=== PATIENT | male | born 1985 | race Caucasian/White ===

== ENCOUNTER 2016-09-07 18:12 | Inpatient (IN) | payer OTHER ==
[~2016-09-07] VITALS: Ht 180.3 cm; Wt 100.0 kg
[2016-09-07] MEDS ORDERED: 0.9% Sodium Chloride 1,000 ML IV ONE (18:20)
[2016-09-07] MEDS ORDERED: TdaP Vaccine 0.5 mL Inj IM ONE (18:20)
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
[2016-09-07 18:29] LABS: BASOPHILS % (AUTO) 0.4 % (0-3); EOSINOPHILS % (AUTO) 2.3 % (0-5); MONOCYTES % (AUTO) 6.4 % (4-12); Mean Corpuscular Hemoglobin 30.4 pg (27.0-35.0); Mean Corpuscular Volume 88.3 fL (81-100); NEUTROPHILS % (AUTO) 45.8 % (40-74); Platelet Count 316 bil/L (150-400)
[2016-09-07] MEDS: fentaNYL-PF 50 mCg/mL 2 mL Inj IVPUSH PRN ×3 (18:30→19:50)
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
--- NOTE | 2016-09-07 19:15 | DRSVH ---
PROCEDURE: X-RAY PELVIS, ONE OR TWO VIEWS ([id number]) INDICATIONS: trauma, PELVIS TECHNIQUE: 1 view(s) of the pelvis acquired. COMPARISON: None. FINDINGS: Bones: No fractures or dislocations. No suspicious bony lesions. Soft tissues: Visualized bowel gas pattern is normal. No suspicious soft tissue calcifications. IMPRESSION: No fracture. No osseous lesion. If there are persistent symptoms or clinical suspicion f or pathology, then repeat radiographs or advanced imaging (CT, MRI or bone scan) should be considered for further evaluation. Dictated by: Sury Muniz MD, PhD on 09/07/2016 at 19:13 Approved by: Sury Muniz MD, PhD on 09/07/2016 at 19:14
--- NOTE | 2016-09-07 19:17 | DRSVH ---
PROCEDURE: X-RAY LEFT TIBIA/FIBULA, TWO VIEWS ([id number]) INDICATIONS: trauma, LOWER LEG TECHNIQUE: 2 views of the tibia and fibula were acquired. COMPARISON: None. FINDINGS: Bones: Displaced fracture of the proximal fibula is noted. Soft tissue gas is noted suspicious for open fracture. Soft tissues: Small linear calcification noted in the expected lateral margin of the lateral meniscu s which could represent a small avulsion fracture versus foreign body. IMPRESSION: Displaced proximal fibular fracture. Dictated by: Sury Muniz MD, PhD on 09/07/2016 at 19:14 Approved by: Sury Muniz MD, PhD on 09/07/2016 at 19:16
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
[2016-09-07] MEDS ORDERED: DEXTROSE 5% IV ONE (19:55)
[2016-09-07] MEDS ORDERED: CEFAZOLIN IV ONE (19:55)
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
[2016-09-07] MEDS ORDERED: CeFAZolin Inj 2 GM in IV Premix 1 EACH IV ONE (19:58)
[2016-09-07] MEDS ORDERED: Lidocaine 1%-Epi 1:100,000 50 mL Inj NERVEBLOCK ONE (20:15)
[2016-09-07] MEDS: HYDROmorphone 0.5 mg/0.5 mL iSecure Syringe IVPUSH PRN ×4 (20:15→22:23)
[2016-09-07] MEDS ORDERED: Lidocaine 1%/Epi 1:100,000 30 mL MDV ONE (20:19)
--- NOTE | 2016-09-07 20:30 | DRSVH ---
PROCEDURE: X-RAY LEFT ANKLE, MINIMUM THREE VIEWS ([id number]) INDICATIONS: trauma TECHNIQUE: 3 views of the ankle were acquired. COMPARISON: None. FINDINGS: Bones: No fractures or dislocations. Ankle mortise is normally aligned. No suspicious bony lesions . Soft tissues: No tibiotalar joint effusion. Achilles tendon appears normal. Lateral soft tissue swe lling is noted and ligamentous injury cannot be excluded. IMPRESSION: No fracture. No osseous lesion. If there are persistent symptoms or clinical suspicion f or pathology, then repeat radiographs or advanced imaging (CT, MRI or bone scan) should be considered for further evaluation. Dictated by: Sury Muniz MD, PhD on 09/07/2016 at 20:27 Approved by: Sury Muniz MD, PhD on 09/07/2016 at 20:28
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
[2016-09-07] MEDS ORDERED: MetoCLOpramide 5 mg/mL 2 mL Inj IVPUSH PRN (21:10)
[2016-09-07] MEDS ORDERED: Ondansetron 2 mg/mL 2 mL Inj IVPUSH PRN (21:10)
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
[2016-09-07] MEDS: HYDROmorphone 1 mg/mL Inj IVPUSH PRN (23:58)
[2016-09-08] VITALS (9 sets, daily range): BP systolic 134–151; BP diastolic 84–96; PULSE 121–154; RESP 14–18; O2SAT 95–98
[2016-09-08] MEDS: D5 0.45% NaCl + KCl 20 mEq/L 1,000 ML IV SCH ×3 (00:09→17:24)
[2016-09-08] MEDS: Sodium Chloride LOK Flush 10 mL Syringe IVFLUSH SCH ×3 (00:30→16:14)
--- NOTE | 2016-09-08 02:40 | NUR ---
Admission Pt arrived to [facility] alert and oriented x 4 via gurney at 2320. Pt attempted to stand with 2P assist;however he c/o lightheadedness and was placed onto the bed with his head down. Pt states position was helpful. Pt oriented to room, call light, television, bathroom, and bed controls. Pt c/o lt calf pain and was given Dilaudid 0.5mg IVP x2, which was an improvement states pt. Pt denies chest pain/pressure and shortness of breath. Pt continues to have HR in the 140s-asymptomatic. Continuous pulse ox and telemetry in place. Call light within reach. Care ongoing.
[2016-09-08] MEDS: HYDROmorphone 1 mg/mL Inj IVPUSH PRN ×6 (04:26→22:19)
[2016-09-08 05:39] LABS: BASOPHILS % (AUTO) 0.1 % (0-3); EOSINOPHILS % (AUTO) 0 % (0-5); MONOCYTES % (AUTO) 15.5 % (4-12); Mean Corpuscular Volume 90.2 fL (81-100); NEUTROPHILS % (AUTO) 71.1 % (40-74); Platelet Count 251 bil/L (150-400)
[2016-09-08] MEDS: Polyethylene Glycol (PEG) 17 Gm Powder PO SCH (08:41)
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
--- NOTE | 2016-09-08 11:26 | PCM.PNORTH ---
Subjective Date of Service: Sep 08, 2016 Visit Information: Reason for Visit Trauma Complex Leg Lac L Knee Injury Surgery/Surgery Date Post-Op Day # Date of Admission: Sep 07, 2016 at 22:09 Hospital Day # Subjective Patient is doing #1 from the left fibular shaft fracture, left tibial plateau small avulsion fracture anteriorly, patellar fracture of the left knee. Patient is lying down in bed and states that he has a little bit of pain which is slowly getting worse but has been doing okay through the night. He understands that he will be able to be weightbearing and will need to be immobilized for a few weeks. 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 He is ready to work with physical therapy and see how he performs and understands that he will need to eat, use the restroom, have pain well controlled, and be able to ambulate well before discharge. Postop General: No Shortness of Breath, No Chest Pain Objective Exam Objective Patient is alert and oriented 3. Answering questions appropriately. Patient is sitting up in the bed and appears comfortable today. Dressing is clean dry and intact. Calf is soft and nontender as far as I am able to test through the immobilizer.. Sensation and pulses intact, patient able to wiggle toes. Blood pressure aditya to approximately 180 systolic during physical therapy, possible pain control issue. Vital Signs and I/O Vital Sign - Last Date Time Temp Pulse Resp B/P Pulse Ox O2 Delivery O2 Flow Rate FiO2 09/08/16 08:59 36.7 139 18 134/92 96 Room Air Intake and Output 09/07/16 09/07/16 09/08/16 Cumulative From/Thru 15:00 23:00 07:00 09/07/16 19:54 - 09/08/16 06:44 Intake Total 1445 ml 1445 ml Output Total 620 ml 620 ml Balance 825 ml 825 ml Intake Oral 800 ml 800 ml IV Total 645 ml 645 ml Output Urine Total 620 ml 620 ml # Bowel Movements 0 0 Lab & Micro Results Laboratory Tests Test 09/07/16 18:22 09/07/16 21:23 09/08/16 05:10 White Blood Count 9.4th/mm3 (3.8-10.1) 9.1th/mm3 (3.8-10.1) Red Blood Count 5.40mil/mm3 (4.40-5.80) 4.50mil/mm3 (4.40-5.80) Hemoglobin 16.4g/dL (13.8-17.2) 14.6g/dL (13.8-17.2) 13.5g/dL (13.8-17.2) Hematocrit 47.7% (41.0-50.0) 42.8% (41.0-50.0) 40.6% (41.0-50.0) Mean Corpuscular Volume 88.3fL (81-100) 90.2fL (81-100) Mean Corpuscular Hemoglobin 30.4pg (27.0-35.0) 30.0pg (27.0-35.0) Mean Corpuscular Hemoglobin Concent 34.4% (32.0-37.0) 33.3% (32.0-37.0) Red Cell Distribution Width 11.9% (12.3-15.4) 12.0% (12.3-15.4) Platelet Count 316bil/L (150-400) 251bil/L (150-400) Neutrophils (%) (Auto) 45.8% (40-74) 71.1% (40-74) Lymphocytes (%) (Auto) 44.9% (14-46) 13.1% (14-46) Monocytes (%) (Auto) 6.4% (4-12) 15.5% (4-12) Eosinophils (%) (Auto) 2.3% (0-5) 0% (0-5) Basophils (%) (Auto) 0.4% (0-3) 0.1% (0-3) Sodium Level 136mEq/L (134-144) 136mEq/L (134-144) Potassium Level 3.2mEq/L (3.5-5.2) 4.2mEq/L (3.5-5.2) Chloride Level 95mEq/L (97-108) 100mEq/L (97-108) Carbon Dioxide Level 20mmol/L (18-29) 19mmol/L (18-29) Blood Urea Nitrogen 19mg/dL (6-20) 19mg/dL (6-20) Creatinine 1.20mg/dL (0.76-1.27) 0.98mg/dL (0.76-1.27) Estimat Glomerular Filtration Rate 76mL/min (>59) 96mL/min (>59) Glucose Level 146mg/dL (60-99) 174mg/dL (60-99) Calcium Level 9.3mg/dL (8.5-10.1) 8.7mg/dL (8.5-10.1) Total Bilirubin 0.4mg/dL (0.0-1.2) 0.5mg/dL (0.0-1.2) Aspartate Amino Transf (AST/SGOT) 20U/L (0-50) 54U/L (0-50) Alanine Aminotransferase (ALT/SGPT) 31U/L (0-44) 28U/L (0-44) Alkaline Phosphatase 71U/L (25-150) 56U/L (25-150) Troponin T < 0.010ug/L (0.0-0.011) Total Protein 7.5g/dL (6.4-8.4) 5.9g/dL (6.4-8.4) Albumin 4.6g/dL (3.4-5.0) 3.9g/dL (3.4-5.0) Alcohols < 10mg/dL (0-10) Result Diagram: 09/08/1610 09/08/16509 Assessment & Plan Impression Patient is day 1 from left patellar fracture, midshaft proximal third fibular fracture, small tibial plateau fracture. Patient doing well as far as compliance and immobilization and willingness to work with physical therapy. Pain control may be a concern today and as patient worked with physical therapy his blood pressure aditya significantly. Problems: Plan Patient will continue to work with physical therapy most likely with crutches for gait training. WBAT with knee immobilizer and walking boot. Wound care consultation was placed yesterday to evaluate the left elbow and road rash abrasions to care and do daily dressing changes as needed or recommended. Order per Dr. Dominguez: recommend loose primary closure versus wound consult/plastics for wound care/flap evaluation Recommended confirm that tetanus shot is up-to-date, antibiotics as indicated by hospitalist for Dr. Monsalve as appropriate. Thank you to hospitalist for managing patient's other medical concerns. We will continue to follow while in hospital. Once pain is able to be controlled and patient able to ambulate safely and cleared by physical therapy with crutches, maybe discharge from an orthopedic perspective. pt can f/u as outpatient in clinic with 2 view knee and tib/fib xrays in 2 weeks Will Richardson PA-C Sep 08, 2016 11:26 Will Richardson PA-C Sep 08, 2016 11:26
[2016-09-08 13:28] LABS: BASOPHILS % (AUTO) 0.1 % (0-3); EOSINOPHILS % (AUTO) 0 % (0-5); MONOCYTES % (AUTO) 15.4 % (4-12); Mean Corpuscular Volume 89.8 fL (81-100); NEUTROPHILS % (AUTO) 61.3 % (40-74); Platelet Count 199 bil/L (150-400)
--- NOTE | 2016-09-08 13:30 | NUR ---
Evaluation completed. Please go to "Notes" then click on "Assessments and Notes" (bottom left corner of screen). Then select appropriate discipline tab on top of screen.
--- NOTE | 2016-09-08 14:22 | PROG NOTE ---
[address] [address] PROGRESS NOTE PATIENT: MARGO CHAUDHARI : 1985 MR#: [id number] ADMIT: 09/07/2016 JOB ID: [id number] DATE: 09/08/2016 SUBJECTIVE: The patient is seen in followup in the afternoon. Overall he is doing well. However, he remains persistently tachycardic with his heart rate going up as high as 154 later this morning. He tells me his pain is well controlled. I rechecked hematocrit which looks relatively stable. It went from 40.6 to 37.7. His belly is benign. I am going to get a CT of the chest just to make sure that there is no blunt thoracic aortic artery injury or some other significant etiology of his tachycardia.
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
--- NOTE | 2016-09-08 18:43 | NUR ---
pain management/tachycardia patient's pain has been relatively well controlled today. tolerating 10mg oxycodone approx every 4 hours. patient has needed 1 mg IV dilaudid in between PO pain meds after dressing changes and MD evaluations of left davies wound. patient remains tachycardic, ranging 120-130's ST at rest. patient was up with PT and noted an increased in HR to 180's becoming symptomatic--became pale and clammy. Dr Monsalve notified of increased rate, CTa ordered. Dr Monsalve aware of results, noting found to explain increased HR. continue to monitor.
[2016-09-09] VITALS (8 sets, daily range): BP systolic 129–146; BP diastolic 79–94; PULSE 128–139; RESP 16–18; O2SAT 95–98
[2016-09-09] MEDS: Sodium Chloride LOK Flush 10 mL Syringe IVFLUSH SCH ×3 (00:30→16:30)
[2016-09-09] MEDS: D5 0.45% NaCl + KCl 20 mEq/L 1,000 ML IV SCH ×3 (04:18→23:44)
--- NOTE | 2016-09-09 04:50 | NUR ---
DRESSING/PAIN/PULSE: Dressing was changed at about 0045, dressing was saturated with S/S drainage. Pulses are present on L.E. able to check pulses with Doppler. Medicated with Roxicodone and Dilaudid for pain, effective. Voiding per urinal independently. Heart rate is still elevated from teens to 140s at rest. Pulse elevated with activity goes into the 150s-170s for a few seconds. Will cont. to monitor.
[2016-09-09 08:09] LABS: Mean Corpuscular Hemoglobin 30.2 pg (27.0-35.0)
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
[2016-09-09] MEDS: Polyethylene Glycol (PEG) 17 Gm Powder PO SCH (08:24)
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
[2016-09-09] MEDS: HYDROmorphone 1 mg/mL Inj IVPUSH PRN (16:13)
--- NOTE | 2016-09-09 18:15 | NUR ---
Pain, Tachycardia Patient continues to have pain to the lower left leg this shift, states that it is well controlled with ordered pain medications. Patient alert and oriented. Patient continues to be tachycardic, MD aware. Care is ongoing.
--- NOTE | 2016-09-09 19:05 | NUR ---
Wound Note Patient seen at bedside for wound care and dressing change instructions. Left pretibial wound cleaned with saline moist gauze and redressed with 4x4 gauze, abd pads, kerlix wrap and leo wrap. Patient instructed to change this dressing daily on discharge. Left elbow wound cleaned with saline moist gauze and redressed a foam mepilex dressing, pt instructed to change this q 48 hours. Right medial lower leg wound, dressed with mepilex dressing and to change q 48 hours. Patient has follow up appointment at wound center with Dr Bello Vasques 09/13.
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
[2016-09-10] VITALS (8 sets, daily range): BP systolic 127–156; BP diastolic 76–88; PULSE 114–163; RESP 18; O2SAT 95–99
[2016-09-10] MEDS: Sodium Chloride LOK Flush 10 mL Syringe IVFLUSH SCH ×3 (00:30→16:19)
--- NOTE | 2016-09-10 04:36 | NUR ---
Pain Patient's states his pain has been managed well with Roxycodone 15 mg q4 hours. Patient A&OX3. Good sensation in extremities. Patient has not been up OOB this shift. Tele sinus Tachy 135. Dressing clean dry and intact. no sign of dressing becoming saturated. Patient resting quietly in bed most of shift.
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
[2016-09-10 08:48] LABS: BASOPHILS % (AUTO) 0.1 % (0-3); EOSINOPHILS % (AUTO) 0.8 % (0-5); MONOCYTES % (AUTO) 11.1 % (4-12); Mean Corpuscular Hemoglobin 30.1 pg (27.0-35.0); Mean Corpuscular Volume 92.5 fL (81-100); NEUTROPHILS % (AUTO) 66.3 % (40-74); Platelet Count 170 bil/L (150-400)
[2016-09-10] MEDS: D5 0.45% NaCl + KCl 20 mEq/L 1,000 ML IV SCH ×2 (08:53→18:20)
[2016-09-10] MEDS: Polyethylene Glycol (PEG) 17 Gm Powder PO SCH (08:53)
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
--- NOTE | 2016-09-10 13:32 | PROG NOTE ---
[address] [address] PROGRESS NOTE PATIENT: MARGO CHAUDHARI : 1985 MR#: [id number] ADMIT: 09/07/2016 JOB ID: [id number] DATE: 09/10/2016 SUBJECTIVE: The patient remains afebrile, still tachycardic. He is awaiting further evaluation/instructions with physical therapy prior to being ready for discharge. Examination is otherwise unremarkable. White count remains normal at 7.3, but his hematocrit continues to trend down from an initial hematocrit of 42 to 40 to 38 to 35 and now to 29.8 this morning. DATE: IMPRESSION AND PLAN: Unexplained tachycardia, continued drop in his hematocrit that seems excessive for his orthopedic injuries. Given the continued tachycardia and the dropping hematocrit, I will repeat his CT scan of his abdomen. If there is no sign of internal bleeding, he will likely be ready for discharge with followup with the dumper bailer operator per Dr. Monsalve's note from yesterday.
[2016-09-10] MEDS: HYDROmorphone 1 mg/mL Inj IVPUSH PRN (14:14)
--- NOTE | 2016-09-10 18:10 | NUR ---
Dressing Change, Pain, Tachycardia Dressing changed this shift per orders, patient tolerated dressing change well. Patient states that pain is well controlled with ordered pain medications, with pain usually at a tolerable 3/10. Patient continues to be tachycardic, MD aware. Care is ongoing.
[2016-09-11] VITALS (7 sets, daily range): BP systolic 129–138; BP diastolic 69–86; PULSE 111–160; RESP 16–19; O2SAT 98–100
[2016-09-11] MEDS: Sodium Chloride LOK Flush 10 mL Syringe IVFLUSH SCH ×3 (00:30→16:30)
--- NOTE | 2016-09-11 02:49 | NUR ---
Pain Patient states his pain is pretty well managed this shift 05/13 without taking any pain medication since prior to shift change. Patient A&OX3. Good sensation to lower extremity's. Patient denies N/V. Tele sinus tachy 108. Dressing's remain clean dry and intact. Care continues.
[2016-09-11] MEDS: D5 0.45% NaCl + KCl 20 mEq/L 1,000 ML IV SCH ×2 (05:10→11:15)
[2016-09-11] MEDS: Polyethylene Glycol (PEG) 17 Gm Powder PO SCH (08:22)
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
--- NOTE | 2016-09-11 18:29 | NUR ---
Dressing Change Right anterior davies: moist NS gauze to site for cleaning, minimal sero-sanguineous drainage. Mepilex replaced - poor adhesion noted. Bio-occlusive added for extra adhesion. Left Elbow: Swelling noted with minimal sero-sanguineous drainage noted to dressing. Cleansed site with moist NS gauze and Foam Mepliex placed. Stockinette over top. Left Leg: Site cleaned with moist NS gauze. No active bleeding noted. Copious serous drainage noted to dressing prior to removal. Swelling and bruising from upper thigh down to toes. Pt denies numbness/tingling. Moist NS gauze placed to open wound site, Abd pads, Kerlix wrap and DINA wrap over top. Knee immobilizer and boot replaced. Leg elevated on pillows - chucks pad underneath. An ~hour post dressing change, pt stating that boot hurting and feeling 'too tight.' HYDRAULIC MINER and RN attempted to readjust boot padding. Pt stated it feeling better. An hour later, again, c/o tightness. Boot removed at 1800, foot remains elevated. Pain medications administered. Family/Friends present in room. Care continues.
[2016-09-12] MEDS: Sodium Chloride LOK Flush 10 mL Syringe IVFLUSH SCH ×2 (00:39→09:35)
[2016-09-12 01:05] VITALS: BP 150/78; PULSE 121; RESP 16; O2SAT 98
--- NOTE | 2016-09-12 05:14 | NUR ---
Temperature Patient has been running a slight fever this shift 99.5. Patient A&OX3. At the beginning of shift Gordon wrap was loosened. Patient stated it felt a little too tight. After re-wrapping the leg patient stated it felt much better. IV is saline locked. Tele sinus tachycardia. Patient states that his heart rate really increases when up w/PT. care continues.
[2016-09-12 06:46] VITALS: BP 133/81; PULSE 118; RESP 20; O2SAT 97
[2016-09-12 09:30] VITALS: BP 130/76; PULSE 112; RESP 18; O2SAT 98
[2016-09-12] MEDS: Polyethylene Glycol (PEG) 17 Gm Powder PO SCH (09:35)
[2016-09-12] MEDS ORDERED: MeTOProlol 1 mg/mL 5 mL Inj IV ONE (10:30)
[2016-09-12 11:36] VITALS: PULSE 111
[2016-09-12 11:40] LABS: Mean Corpuscular Hemoglobin 29.7 pg (27.0-35.0); Mean Corpuscular Volume 93.7 fL (81-100)
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
[2016-09-12 11:59] VITALS: PULSE 156
[2016-09-12 13:04] VITALS: BP 146/88; PULSE 107; RESP 18; O2SAT 92
[2016-09-12] MEDS ORDERED: [UNRECOGNIZED DRUG - OTHER] (13:40)
--- NOTE | 2016-09-12 14:12 | NUR ---
Scheduled hospital follow up at [facility] for September check in at 415PM for 430PM appointment with Updated DISK SANDER
--- NOTE | 2016-09-12 14:48 | NUR ---
Social Work: Discharge D: EMR reviewed. Per MD, pt will discharge today. SW received rx from MD for FWW. Pt requested rx so pt's family could shop around to get the best huerta. SW provided pt with rx and information about local DME providers. SW also suggested [facility], [facility], and [facility]. SANA asked if pt would like SW to fax rx to a provider, pt declined. Pt stated family would help him find the best huerta. SW will continue to follow for needs. A: Pt who is independent at baseline but will return home with outpt wound vac and FWW for ambulation. P: Pt to return home with family via POV. Pt has been scheduled for new PCP appointment and SW provided appointment details and phone number. Pt will discharge with wound vac and wound care MD has scheduled outpt wound care. MOLINA Fountain
--- NOTE | 2016-09-12 15:03 | NUR ---
Social Work: Continued Discharge Planning D: EMR reviewed. Pt is on day 5 of hospitalization. SANA received MD order to schedule new PCP appointment. SANA scheduled appointment at [facility] for 09/14/16 with a 1615 check-in and [address] Barajas. SW provided pt with date/time/address/phone number for appointment. Pt was agreeable. SW received rx from MD for FWW. Pt requested rx so pt's family could shop around to get the best huerta. SW provided pt with rx and information about local DME providers. SW also suggested [facility], [facility], and [facility] [place]. SANA asked if pt would like SW to fax rx to a provider, pt declined. Pt stated family would help him find the best huerta. SW will continue to follow for needs. A: Pt who is independent at baseline but will return home with outpt wound vac and FWW for ambulation. P: Pt to return home with family via POV. Pt has been scheduled for new PCP appointment and SANA provided appointment details and phone number. Pt will discharge with wound vac and wound care MD has scheduled outpt wound care. Negrita Horan MSW
--- NOTE | 2016-09-12 15:12 | PCM.DISURG ---
Surgical Discharge Instruction Date of Service Sep 12, 2016 Dates of Hospitalization Date of Hospital Admission Sep 07, 2016 at 22:09 Providers Admitting Physician: Giorgi Monsalve MD Primary Care Physician: Gabbie Attending Physician: Giorgi Monsalve MD Discharge Diagnosis Discharge Diagnosis left fib fracture Diet Discharge Diet: No restrictions Activity Discharge Activity-General: No driving while taking narcotic Dressing and Incisional Care Dressing Care: Keep dressing clean, dry & intact Hygiene: May shower Follow Up Plan Follow Up Plan follow up in wound clinic as scheduled Call your provider for: Fever, Chills, Increasing wound pain Giorgi Monsalve MD Sep 12, 2016 15:12
[2016-09-12] MEDS ORDERED: OXYC5TAB72 PO (15:13)
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
--- NOTE | 2016-09-12 18:00 | NUR ---
Wound Note Patient seen for placement of home going NPWT at his left lower leg wound today. Wound was prepped and periwound skin which is tentative for survival was protected with thick duoderm. Black foam was placed over his pretibial wound and pressure brought up to 150 mmHg, constant, a good seal was attained. Patient will follow up at the wound center 09/14/16 for dressing change, 09/16/[address] Hernandez. Pt instructed in care and use of NPWT. Discharged today from [facility].
--- NOTE | 2016-09-12 18:51 | NUR ---
Discharge Pt discharged to home with parents at 1840. A&OX3, HARRIS, VSS, IVx2 dc'd intact, Received pain meds prior to dc at 1815, Dressings to davies and elbow CDI; wound vac and immobilizers in place to LLE. Hard copy scripts provided to pt - scripts filled prior to dc. Wheel chair to vehicle with assist. No questions/concerns left unanswered. Care Notes and instructions provided on dc dx and f/u plan and new medications. Wound Care present for wound vac placement and went over teaching with pt.
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
== END 2016-09-12 18:37 | disposition home or self-care (01) | DRG 563 ==
LOC: EDUNIT# 18:12 → SED 18:12 → EDBD 18:13 → INTOOBSV 22:09 → OSC 22:09 → OBSVTOIN 22:09 → OSC 23:16
PROVIDERS: ADMIT General Practice; ATTEND General Practice
DX: S82.142A Displaced bicondylar fracture of left tibia, initial encounter for closed fracture (principal); S82.042A Displaced comminuted fracture of left patella, initial encounter for closed fracture; R71.0 Precipitous drop in hematocrit; M25.522 Pain in left elbow; S82.452A Displaced comminuted fracture of shaft of left fibula, initial encounter for closed fracture; R00.0 Tachycardia, unspecified; S50.312A Abrasion of left elbow, initial encounter; Y92.410 Unspecified street and highway as the place of occurrence of the external cause; V27.0XXA Motorcycle driver injured in collision with fixed or stationary object in nontraffic accident, initial encounter

== ENCOUNTER 2016-09-29 09:44 | Day surgery (SDC) | payer OTHER ==
[2016-09-29] VITALS (9 sets, daily range): BP systolic 103–123; BP diastolic 62–80; PULSE 84–104; RESP 15–18; O2SAT 95–99
[~2016-09-29] VITALS: Ht 180.3 cm; Wt 92.3 kg
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
[~2016-09-29 09:44] MED LIST: Clindamycin 900 mg/50 mL D5W IV ONE; OXYC5CAP4 PO
[2016-09-29] MEDS ORDERED: Propofol 10,000 mCg/mL 20 mL Inj ONE (09:45)
[2016-09-29] MEDS ORDERED: fentaNYL-PF 50 mCg/mL 2 mL Inj ONE (09:45)
[2016-09-29] MEDS ORDERED: Ondansetron 2 mg/mL 2 mL Inj ONE (09:45)
[2016-09-29] MEDS: Lactated Ringer's 1,000 ML IV SCH ×3 (10:46→14:52)
[2016-09-29] MEDS ORDERED: Lactated Ringer's 500 ML IV PRN (12:59)
[2016-09-29] MEDS ORDERED: Lactated Ringer's 1,000 ML IV SCH (12:59)
[2016-09-29] MEDS ORDERED: EPHEDrine Sulfate 50 mg/mL Inj IVPUSH PRN (13:00)
[2016-09-29] MEDS ORDERED: Dexamethasone 4 mg/mL Inj IVPUSH PRN (13:00)
[2016-09-29] MEDS ORDERED: Phenylephrine 10,000 mCg/mL Inj IVPUSH PRN (13:00)
[2016-09-29] MEDS ORDERED: MetoCLOpramide 5 mg/mL 2 mL Inj IVPUSH PRN (13:00)
[2016-09-29] MEDS ORDERED: Ondansetron 2 mg/mL 2 mL Inj IVPUSH PRN (13:00)
[2016-09-29] MEDS ORDERED: HYDROmorphone 1 mg/mL Inj IVPUSH PRN (13:00)
[2016-09-29] MEDS ORDERED: fentaNYL-PF 50 mCg/mL 2 mL Inj IVPUSH PRN (13:00)
[2016-09-29] MEDS ORDERED: Gentamicin 40 mg/mL 2 mL Inj IRRIGATION ONE (13:05)
--- NOTE | 2016-09-29 14:04 | PCM.ANEP1 ---
Post Anesthesia PACU Phase 1 Assessment Vital Signs Vital Signs Date Time Temp Pulse Resp B/P Pulse Ox O2 Delivery O2 Flow Rate FiO2 09/29/16 10:24 36.2 104 18 117/72 97 Room Air Anesthetic Administered: GA Level of Alertness: Awake, talking HARRIS's with Equal Strength: Yes Pain: No Nausea or Vomiting: No CV Function & Hydration Stable: Yes Airway Device: Oxygen Delivery: Room Air Lungs: Clear to Auscultation PACU Phase 2 Assessment Complications: No Follow up Care: No Patient Instructions Provided: N/A Star Rendon MD Sep 29, 2016 14:04
[2016-09-29] MEDS ORDERED: oxyCODONE-Acetamin 5-325 mg Tablet PO PRN (14:35)
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
== END 2016-09-29 23:59 | disposition home or self-care (01) ==
LOC: SAS 09:44
PROVIDERS: ATTEND Plastic Surgery
DX: S91.012A Laceration without foreign body, left ankle, initial encounter (principal); S81.012A Laceration without foreign body, left knee, initial encounter; V29.9XXA Motorcycle rider (driver) (passenger) injured in unspecified traffic accident, initial encounter; Y93.9 Activity, unspecified; Y92.9 Unspecified place or not applicable; Y99.8 Other external cause status
CPT/HCPCS: 11043; 11046; 87070; 87075; 87077; 87186; 87205; A6550; J1580; J2250; J2405; J3010; J3490; J7120

== ENCOUNTER → 2016-10-26 | Day surgery (SDC) | payer OTHER ==
[~2016-10-26] VITALS: Ht 180.3 cm; Wt 90.8 kg
[2016-10-26] VITALS (11 sets, daily range): BP systolic 119–156; BP diastolic 75–97; PULSE 94–122; RESP 14–19; O2SAT 95–99
[~2016-10-26] MED LIST changes: +Atropine 0.4 mg/mL Inj IVPUSH PRN; -Clindamycin 900 mg/50 mL D5W IV ONE; +Clindamycin Inj 900 MG in IV Premix 1 EACH IV ONE; +Dexamethasone 4 mg/mL Inj IVPUSH PRN; +EPHEDrine Sulfate 50 mg/mL Inj IVPUSH PRN; +HYDROmorphone 1 mg/mL Inj ONE; +Labetalol 5 mg/mL 4 mL Inj IV PRN; +Lactated Ringer's 1,000 ML IV ONE; +Lactated Ringer's 1,000 ML IV SCH; +Lactated Ringer's 500 ML IV PRN; +Lidocaine 1%-Epi 1:100,000 20 mL Inj SUBQ ONE; +OXYC1TAB91 PO; +Ondansetron 2 mg/mL 2 mL Inj IVPUSH PRN; +Ondansetron 2 mg/mL 2 mL Inj ONE; +Phenylephrine 10,000 mCg/mL Inj IVPUSH PRN; +Propofol 10,000 mCg/mL 20 mL Inj ONE; +Rocuronium 10 mg/mL 5 mL Inj ONE; +fentaNYL-PF 50 mCg/mL 2 mL Inj ONE; +hydrALAZINE 20 mg/mL Inj IVPUSH PRN; +oxyCODONE-Acetamin 5-325 mg Tablet PO PRN
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
[2016-10-26] MEDS: Lactated Ringer's 1,000 ML IV SCH ×2 (10:05→12:32)
[2016-10-26] MEDS: HYDROmorphone 1 mg/mL Inj IVPUSH PRN ×2 (13:56→14:13)
--- NOTE | 2016-10-26 14:04 | PCM.ANEP1 ---
Post Anesthesia PACU Phase 1 Assessment Vital Signs Vital Signs Date Time Temp Pulse Resp B/P Pulse Ox O2 Delivery O2 Flow Rate FiO2 10/26/16 13:55 101 19 129/75 99 Nasal Cannula 2 10/26/16 13:50 105 14 132/80 96 Nasal Cannula 2 10/26/16 13:45 106 14 134/80 96 Nasal Cannula 2 10/26/16 13:40 36.2 122 14 139/79 96 Nasal Cannula 2 10/26/16 10:06 36.6 111 16 156/97 95 Room Air Anesthetic Administered: GA Level of Alertness: Awake, talking HARRIS's with Equal Strength: Yes Pain: No Nausea or Vomiting: No CV Function & Hydration Stable: Yes Airway Device: Oxygen Delivery: Room Air Lungs: Clear to Auscultation PACU Phase 2 Assessment Complications: No Follow up Care: No Patient Instructions Provided: N/A Star Rendon MD Oct 26, 2016 14:04
[2016-10-26] MEDS: fentaNYL-PF 50 mCg/mL 2 mL Inj IVPUSH PRN ×3 (15:20→15:53)
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
== END | disposition home or self-care (01) ==
LOC: SAS 09:44
PROVIDERS: ATTEND Plastic Surgery
DX: S81.802A Unspecified open wound, left lower leg, initial encounter (principal); V89.2XXA Person injured in unspecified motor-vehicle accident, traffic, initial encounter; I49.9 Cardiac arrhythmia, unspecified
CPT/HCPCS: 15220; 15221; J1170; J2175; J2250; J2405; J3010; J3490; J7120